=== PATIENT | female | born 1990 | race Caucasian/White ===

== ENCOUNTER 2021-05-10 15:53 | Emergency (ER) | payer MEDICAID ==
[~2021-05-10] VITALS: Ht 170.2 cm; Wt 72.7 kg
[2021-05-10 16:46] LABS: URINE HCG NEGATIVE (NEG)
[2021-05-10 16:50] LABS: HEMOGLOBIN 16.7 g/dl (12.0-16.0); MEAN PLATELET VOLUME 9.7 FL (7.4-10.4); MONOCYTES # (AUTO) 0.6 X10'3 (0-0.9); PLATELET COUNT 205 X10'3 (140-440)
[2021-05-10 16:52] LABS: BASOPHILS % (AUTO) 0.3 % (0-1); EOSINOPHILS % (AUTO) 0.2 % (0-6); HEMATOCRIT 49.5 % (35.0-45.0); LYMPHOCYTES # (AUTO) 1.6 X10'3 (1.1-4.8); LYMPHOCYTES % (AUTO) 23.1 % (21-51); MEAN CORPUSCULAR HEMOGLOBIN 31.1 PG (27.0-31.0); MEAN CORPUSCULAR HGB CONC 33.8 g/dL (33.0-36.5); MEAN CORPUSCULAR VOLUME 92.1 FL (78-98); MONOCYTES % (AUTO) 8.9 % (2-12); NEUTROPHILS # (AUTO) 4.8 X10'3 (1.8-7.7); NEUTROPHILS % (AUTO) 67.5 % (42-75); RED BLOOD COUNT 5.38 X10'6 (4.20-5.60); RED CELL DISTRIBUTION WIDTH 13.4 % (11.5-14.5); WHITE BLOOD COUNT 7.1 X10'3 (4.5-11.0)
[2021-05-10 16:54] LABS: ALANINE AMINOTRANSFERASE 14 U/L (12-78); ALBUMIN 4.8 G/DL (3.4-5.0); ALBUMIN/GLOBULIN RATIO 1.2 (1.1-1.5); ALKALINE PHOSPHATASE 99 IU/L (46-116); ANION GAP 16 (8-16); ASPARTATE AMINO TRANSFERASE 16 U/L (10-37); BILIRUBIN,TOTAL 0.8 MG/DL (0.1-1.0); BLOOD UREA NITROGEN 11 MG/DL (7-18); BUN/CREATININE RATIO 12.9 (6.6-38.0); CALCIUM 9.5 MG/DL (8.5-10.1); CHLORIDE 103 MMOL/L (99-107); CREATININE 0.85 MG/DL (0.40-0.90); GLUCOSE 83 MG/DL (70-104); POTASSIUM 3.3 MMOL/L (3.5-5.1); SODIUM 142 MMOL/L (135-145); TOTAL CARBON DIOXIDE 22.7 MMOL/L (24-32); TOTAL PROTEIN 8.7 G/DL (6.4-8.2); eGFR 79 ML/MIN
[2021-05-10 16:56] LABS: URINE AMPHETAMINE SCREEN NEGATIVE (Neg); URINE BARBITUATE SCREEN NEGATIVE (Neg); URINE BENZODIAZEPINES SCREEN NEGATIVE (Neg); URINE CANNABINOID SCREEN POSITIVE (Neg); URINE COCAINE SCREEN NEGATIVE (Neg); URINE METHADONE SCREEN NEGATIVE (Neg); URINE OPIATE SCREEN NEGATIVE (Neg); URINE PHENCYCLIDINE SCREEN NEGATIVE (Neg)
[2021-05-10 17:01] LABS: CLARITY,URINE BLOODY (Clear); COLOR,URINE RED (Yellow); UA COLLECTION TYPE CLN CATCH MIDSTREAM
[2021-05-10 17:04] LABS: RBC,URINE TNTC /HPF (0-2)
[2021-05-10 17:04] LABS: ETHANOL < 0.010 GM/DL (0.0-0.010)
[2021-05-10 17:06] LABS: BACTERIA,URINE 2+ /HPF (Neg); MUCUS STRANDS MANY /LPF (Neg); SQUAMOUS EPITHELIAL CELL,UR MANY /LPF (FEW); WBC CLUMPS,URINE MODERATE /HPF (NEGATIVE); WBC,URINE 50-100 /HPF (0-4)
[2021-05-10] MEDS: sulfamethoxazole/trimethoprim DS (800/160mg) tablet PO SCH (20:01)
--- NOTE | 2021-05-10 21:53 | NUR ---
Patient brought from to overflow bed 26 at 1900. She was accompanied by 2 techs. Patient's belongings inventoried, and she was dressed in unit scrubs. Patient states that her father took her to [employer], who recommended she come to [facility] for MH evaluation. Patient has 2 young children. [place] It also sounds like her parents also live in this park. Patient's oldest child, "has issues, and is a handful." Patient states her father helps and is able to handle the child. Patient is quite child-like and surely needs assistance with her children. It also seems like the children's father helps, but he is out of town a lot. Patient believes the elder child has issues due to her "smoking lots of pot while I was ." Patient believes she is "jyc-ciol-sidzi." Her friends have led her to believe that she is Schizophrenic. MH issues run in her family. Patient has no formal diagnosis. She is here asking for help, and would like to know what is wrong with her. She has been self-medicating with Marijuana for years, "24 or as often as possible." Patient's children will be cared for "as long as it takes for me to get fixed." The patient has trouble "keeping things straight." She calls them "story-lines," but is believed they are auditory hallucinations, or delusions. She also endorses VH, "I've been seeing people." Patient states that she smokes marijuana, "because it helps, but sometimes makes it worse."
--- NOTE | 2021-05-10 22:25 | NUR ---
Patient lying quietly in bed. She is in supine position with her eyes closed. RR even and unlabored.
[2021-05-10] MEDS ORDERED: LORazepam 1 MG tablet PO ONE (23:30)
--- NOTE | 2021-05-10 23:30 | NUR ---
Patient is restless, "can't stay in bed", and getting agitated. Order received from JOHNNY Anguiano for Ativan 1mg PO. It has been administered.
--- NOTE | 2021-05-11 00:15 | NUR ---
Patient continues to be restless and anxious. "I need to move, walk or something." Patient calls them "story-lines," which are really delusions. She is verballizing these delusions about being killed, killing others, friends, seeing relatives, etc. She is very distracted and disorganized by these "story-lines" that she is having trouble keeping what's real, and what's not separate, to the point where, "I may do anything."
--- NOTE | 2021-05-11 01:15 | NUR ---
Patient is asleep in supine position. Breathing is even and unlabored. There are no s/sx of distress.
--- NOTE | 2021-05-11 02:42 | NUR ---
Patient continues to sleep in supine position. Her breathing is unlabored, and there are no s/sx of distress.
--- NOTE | 2021-05-11 04:22 | NUR ---
Patient is asleep in semi-supine position. Her breathing remains even and unlabored. There are no s/sx of distress.
--- NOTE | 2021-05-11 05:30 | NUR ---
Patient sleeping on her right side. RR even and unlabored. No s/sx of distress.
--- NOTE | 2021-05-11 06:20 | NUR ---
Patient came to nurse's station when RN getting report. Patient asked for new linen. RN advised patient that when report is done RN would get her clean linen. Patient verbalized understanding.
--- NOTE | 2021-05-11 06:30 | NUR ---
RN gave patient a new set of linen and patient got a new set of clothes. She brought her linen over and RN noticed blood on her linen. Patient stated she was on her period. RN went to the main to get patient some pads and underwear. RN gave to patient.
--- NOTE | 2021-05-11 06:30 | NUR ---
Received pt. awake and demanding new sheets because she was on her period. Pt. yelled out agitatedly, "I've been asking for new sheets and a call light all night! I'm a patient, you're job is to serve me!" This caption writer introduced heself and attempted to assure pt. of her safety on the unit. Pt. continued to be damanding and agitated, stated sarcastically, "Yeah right Bitch, we'll see how you do today!" This caption writer attempted to redirect pt. and security was called for a standby. Pt. continued to yell and posture towards this caption writer. Dr. Kennedy over assess, and medications will be ordered. Pt. was provided clean sheets, scrubs, and feminine hygiene products. Pt. went to the BR to get dressed and came out naked, standing with her arms and legs spread. She was redirected back into the BR by security. Pt. took her medications while security stood by. She lay down in bed stating in a hypomanic way way, "Have you ever heard the song about LSD?! That little yellow pill you gave me reminded me of it." Will continue to monitor.
--- NOTE | 2021-05-11 06:35 | NUR ---
Patient came to nurse's station and asked for a tooth brush. RN told her she would get one in a moment. Patient walked over to her room and said "You better fucking give me a toothbrush!". Patient started punching her hand. RN called for Security for stand by. Dr Kennedy spoke with patient and calmed her down. Continue to monitor.
[2021-05-11 06:40] VITALS: BP 135/88
[2021-05-11] MEDS ORDERED: OLANZapine 5mg rapidly disint. tablet PO ONE (06:45)
[2021-05-11] MEDS: sulfamethoxazole/trimethoprim DS (800/160mg) tablet PO SCH (07:05)
[2021-05-11] MEDS ORDERED: olanzapine 10mg tablet PO SCH (08:00)
--- NOTE | 2021-05-11 08:15 | NUR ---
Patient sleeping. RN placed her tray at bedside. Patient opened her eyes but went back to sleep. Continue to monitor.
--- NOTE | 2021-05-11 09:59 | NUR ---
[facility] Patient [facility] on a 5150 for gravely disabled. Continue to monitor.
--- NOTE | 2021-05-11 11:12 | NUR ---
Mother, Alana Elise, . Patient's legal surname is Gosia per mom.
--- NOTE | 2021-05-11 13:05 | NUR ---
Lunch tray set on tray table. Patient is still sleeping. No distress observed. Continue to monitor.
--- NOTE | 2021-05-11 14:35 | NUR ---
Patient sleeping supine. No distress observed. Continue to monitor.
== END 2021-05-11 16:25 ==
LOC: ER 15:54
DX: F29 Unspecified psychosis not due to a substance or known physiological condition (principal); Z20.822 Contact with and (suspected) exposure to COVID-19; N39.0 Urinary tract infection, site not specified; F12.90 Cannabis use, unspecified, uncomplicated; F20.9 Schizophrenia, unspecified; Z88.0 Allergy status to penicillin
CPT/HCPCS: 36415; 80053; 80305; 80320; 81001; 81025; 84443; 85025; 87635; 99285; C9803

== ENCOUNTER 2022-08-05 14:11 | Emergency (ER) | payer MEDICAID, OTHER ==
[~2022-08-05] VITALS: Ht 167.6 cm; Wt 63.6 kg
[2022-08-05] MEDS ORDERED: LORazepam 2 mg/ml vial IM ONE (16:00)
[2022-08-05] MEDS ORDERED: haloperidol lactate 5mg/ml inj IM ONE (16:00)
[2022-08-05 16:24] LABS: BASOPHILS % (AUTO) 0.6 % (0-1); EOSINOPHILS % (AUTO) 0.6 % (0-6); HEMATOCRIT 46.9 % (35.0-45.0); HEMOGLOBIN 16.2 g/dl (12.0-16.0); LYMPHOCYTES # (AUTO) 1.8 X10'3 (1.1-4.8); LYMPHOCYTES % (AUTO) 25.3 % (21-51); MEAN CORPUSCULAR HEMOGLOBIN 31.5 PG (27.0-31.0); MEAN CORPUSCULAR HGB CONC 34.5 g/dL (33.0-36.5); MEAN CORPUSCULAR VOLUME 91.3 FL (78-98); MEAN PLATELET VOLUME 9.6 FL (7.4-10.4); MONOCYTES # (AUTO) 0.6 X10'3 (0-0.9); NEUTROPHILS # (AUTO) 4.6 X10'3 (1.8-7.7); NEUTROPHILS % (AUTO) 64.5 % (42-75); PLATELET COUNT 208 X10'3 (140-440); RED BLOOD COUNT 5.14 X10'6 (4.20-5.60); RED CELL DISTRIBUTION WIDTH 13.1 % (11.5-14.5); WHITE BLOOD COUNT 7.1 X10'3 (4.5-11.0)
[2022-08-05 16:38] LABS: ALANINE AMINOTRANSFERASE 36 U/L (12-78); ALBUMIN 4.4 G/DL (3.4-5.0); ALBUMIN/GLOBULIN RATIO 1.2 (1.1-1.5); ALKALINE PHOSPHATASE 62 IU/L (46-116); ANION GAP 13 (8-16); ASPARTATE AMINO TRANSFERASE 37 U/L (10-37); BILIRUBIN,TOTAL 0.9 MG/DL (0.1-1.0); BLOOD UREA NITROGEN 11 MG/DL (7-18); BUN/CREATININE RATIO 14.5 (10.0-20.0); CALCIUM 9.1 MG/DL (8.5-10.1); CHLORIDE 100 MMOL/L (99-107); CREATININE 0.76 MG/DL (0.40-0.90); ETHANOL < 0.010 GM/DL (0.0-0.010); GLUCOSE 88 MG/DL (70-104); POTASSIUM 3.1 MMOL/L (3.5-5.1); SODIUM 139 MMOL/L (135-145); eGFR 89 ML/MIN
[2022-08-05 18:27] VITALS: BP 142/86
== END 2022-08-05 21:54 ==
LOC: ER 14:12
DX: F23 Brief psychotic disorder (principal); F12.90 Cannabis use, unspecified, uncomplicated; Z88.0 Allergy status to penicillin
CPT/HCPCS: 36415; 70450; 80053; 80320; 85025; 99284

== ENCOUNTER 2023-03-14 18:00 | Inpatient (IN) | payer MEDICAID ==
[~2023-03-14] VITALS: Ht 167.6 cm; Wt 64.1 kg
[2023-03-14] MEDS ORDERED: loperamide 2mg capsule PO PRN (22:20)
[2023-03-14] MEDS ORDERED: acetaminophen 325mg tablet PO PRN ×2 (22:20)
[2023-03-14] MEDS ORDERED: mag hydrox/Alum hydrox/simeth 30ml oral suspension PO PRN (22:20)
[2023-03-14] MEDS ORDERED: traZODone 50mg tablet PO PRN (22:20)
[2023-03-14 23:39] VITALS: BP 131/91; PULSE 90; RESP 18; TEMP 97.2; O2SAT 98
[2023-03-14 23:43] VITALS: RESP 18; O2SAT 98
[2023-03-14] MEDS ORDERED: ALB0.5UD IH (23:50)
[2023-03-14] MEDS ORDERED: BUSP10TA4 PO (23:50)
[2023-03-14] MEDS ORDERED: IBUP-1986 PO (23:50)
[2023-03-15] MEDS ORDERED: albuterol 2.5 MG/3 ML nebule NEB PRN (02:30)
[2023-03-15] MEDS ORDERED: ibuprofen tablet 400 MG TABLET PO PRN (02:35)
--- NOTE | 2023-03-15 04:51 | NUR ---
RN PROGRESS NOTE: LEGAL HOLD: 5150 for GD/DTS PROBLEM: Client transferred from [facility] and arrived on the unit at 21:15. She took a shower and changed into green scrubs. Client was admitted for disorganized thoughts and behavior. She was recently incarcerated. While in assisted she was agitated and banged her head against the wall. Client had a similar episode one year ago and spent five days in [facility]. INTERVENTIONS: 1:1 assessments. Q 15 min checks for safety. RESPONSE: Client reported her mental health symptoms began after the of her second son. (She has two young children.) CPS is involved and client is concerned about being able to see her children. She currently has supervised visitation on . Clients mother when client was 10 yo. She does not know her father. She reported that there is a restraining order between herself and the "Elise's". Client reports daily vaping and cannabis use. She reports hearing voices but is aware they "are not real". She denies SI/HI. Cooperative with admission. Took 50 mg Trazodone Tab PO for sleep.
[2023-03-15 07:00] VITALS: RESP 16; O2SAT 99
[2023-03-15 08:34] VITALS: BP 132/87; PULSE 84; RESP 16; TEMP 98.3; O2SAT 99
[2023-03-15] MEDS: busPIRone 5mg tablet PO SCH ×2 (09:00→20:57)
[2023-03-15] MEDS: NICOTINE POLACRILEX 2 MG LOZENGE BC PRN ×4 (09:00→21:04)
[2023-03-15 09:18] LABS: HEMOGLOBIN A1C 4.6 % (4.5-6.2)
[2023-03-15 10:03] LABS: CHOL/HDL RATIO 2.9 (0.00-4.99); CHOLESTEROL 125 MG/DL (0-200); HDL CHOLESTEROL 43 MG/DL (35-60); LDL CHOLESTEROL 69 MG/DL (50-100); TRIGLYCERIDES 95 MG/DL (20-135)
[2023-03-15] MEDS ORDERED: LORazepam 1 MG tablet PO ONE (10:15)
--- NOTE | 2023-03-15 16:06 | NUR ---
Nursing Progress Note: Problem : Pt. is on a 5150 for DTS and GD. Per 5150: You have been unable to sleep and have not been able to create a plan for food, clothes, and care home. Pt. transferred from [facility] and arrived on the unit at 21:15. She took a shower and changed into green scrubs. Pt. was admitted for disorganized thoughts and behavior. She was recently incarcerated. While in snf she was agitated and banged her head against the wall. Client had a similar episode one year ago and spent five days in [facility]. Interventions : Introduced self and attempted to establish rapport, maintained a safe and supportive environment, ensured contract for safety, monitored pt's behavior and provided intervention as needed, provided active listening and positive encouragement, and maintained Q 15min safety checks. Response : Received pt. sleeping in bed at the beginning of the shift, she awoke and was observed to be up in the hallway listening to headphones and interacting appropriately with others. After breakfast, this selling underwriter introduced herself and attempted to establish rapport, pt. presents as irritable, somewhat restless, and appears paranoid. She requests to inspect the packaging of her medication before taking it. Pt. states in an irritable manner, "I want to go home to my two children!" Pt. remained up interacting with others and playing cards in the Group Room. She was noted to present as labile as evidenced by being observed to be laughing and dancing in the hallway at one moment and agitated the next. At approximately 1000, pt. became increasingly anxious and tearful, when questioned what was wrong she stated, "I miss my brother." This selling underwriter provided active listening and pt. requested a PRN anxiolytic. This was endorsed to Dr. Ferguson and received an order for Ativan 1mg, medication was administered with effectiveness. Pt . remained up throughout the shift and showered with set-up help required from staff. 1:1 was completed and pt. denies any S/I, H/I, A/V/MAIN, and no delusional statements were made. She appears to be minimizing any s/s, but does endorse some depression r/t the loss of her children. When questioned by this selling underwriter regarding her living situation, pt. stated in a defensive manner, "I have a trailer, a car and a job." Plan : Pt. requires interruption of current crisis, medication adjustments, and a safe and supportive environment.
[2023-03-15 20:00] VITALS: BP 127/85; PULSE 96; RESP 16; TEMP 98; O2SAT 96
[2023-03-15] MEDS ORDERED: docusate sod 100mg capsule PO ONE (20:00)
[2023-03-15] MEDS: olanzapine 10mg tablet PO SCH (20:57)
[2023-03-15] MEDS: docusate sod 100mg capsule PO SCH (21:04)
[2023-03-15] MEDS: LORazepam 0.5 MG tablet PO PRN (21:04)
--- NOTE | 2023-03-16 05:19 | NUR ---
Nursing Progress Note: Problem : Pt. is on a 5150 for DTS and GD. Per 5150: You have been unable to sleep and have not been able to create a plan for food, clothes, and penitentiary. Pt. transferred from [facility] and arrived on the unit at 21:15. She took a shower and changed into green scrubs. Pt. was admitted for disorganized thoughts and behavior. She was recently incarcerated. While in nursing home she was agitated and banged her head against the wall. Client had a similar episode one year ago and spent five days in [facility]. Interventions : Established rapport with patient by explaining all care. Maintained a safe and supportive environment, while ensuring contract for safety. Q 15 min. rounding safety checks. Response:193 took over pt. care from previously assigned nurse. Pt was in the day room interacting with other pts-playing cards. Pt. also received a phone call from her older brother whom she noted that they have a good relationship. Pt. also saw Dr. Manrique this shift who adjusted pts. meds. Dr. Mullen also asked this write to contact the hospitalist regarding pt.s tooth abscess and need for antibiotics- and concern for penicillin allergies yet pt. reported to have received amoxicillin at [facility] per Dr. Mullen's report. Dr. Roy made are and lab work ordered. At 1999 Pt. pt. pleasant and cooperative denies any S/I, H/I, A/V/MAIN, and no delusional but pt. stated, I needed to go home to my children because they were killed" Pt. was cooperative taking her meds this shift; prn Ativan given x1 for c/o anxiety. Plan : Pt. requires interruption of current crisis, medication adjustments, and a safe and supportive environment.
[2023-03-16 07:00] VITALS: RESP 14; O2SAT 100
[2023-03-16] MEDS: NICOTINE POLACRILEX 2 MG LOZENGE BC PRN ×7 (07:32→21:41)
[2023-03-16 08:00] VITALS: BP 111/77; PULSE 108; RESP 14; TEMP 97.7; O2SAT 100
[2023-03-16] MEDS: busPIRone 5mg tablet PO SCH (08:54)
[2023-03-16] MEDS: docusate sod 100mg capsule PO SCH ×2 (08:54→20:17)
[2023-03-16] MEDS: LORazepam 0.5 MG tablet PO PRN ×3 (08:58→20:17)
[2023-03-16 09:25] LABS: BASOPHILS % (AUTO) 0.2 % (0-1); EOSINOPHILS # (AUTO) 0.1 X10'3 (0-0.9); EOSINOPHILS % (AUTO) 1.5 % (0-6); HEMATOCRIT 47.8 % (35.0-45.0); HEMOGLOBIN 16.2 g/dl (12.0-16.0); LYMPHOCYTES # (AUTO) 2.2 X10'3 (1.1-4.8); LYMPHOCYTES % (AUTO) 32.9 % (21-51); MEAN CORPUSCULAR HEMOGLOBIN 31.4 PG (27.0-31.0); MEAN CORPUSCULAR HGB CONC 33.9 g/dL (33.0-36.5); MEAN CORPUSCULAR VOLUME 92.4 FL (78-98); MEAN PLATELET VOLUME 10.3 FL (7.4-10.4); MONOCYTES # (AUTO) 0.6 X10'3 (0-0.9); MONOCYTES % (AUTO) 8.1 % (2-12); NEUTROPHILS # (AUTO) 3.9 X10'3 (1.8-7.7); NEUTROPHILS % (AUTO) 57.3 % (42-75); PLATELET COUNT 195 X10'3 (140-440); RED BLOOD COUNT 5.18 X10'6 (4.20-5.60); RED CELL DISTRIBUTION WIDTH 13.1 % (11.5-14.5); WHITE BLOOD COUNT 6.8 X10'3 (4.5-11.0)
[2023-03-16 15:42] LABS: HBSAG SCREEN Negative (Negative); HEP B CORE AB, IGM Negative (Negative); HEP B CORE AB, TOT Negative (Negative)
--- NOTE | 2023-03-16 16:44 | NUR ---
Nursing Progress Note: Problem : Pt. is on a 5150 for DTS and GD. Per 5150: You have been unable to sleep and have not been able to create a plan for food, clothes, and usp. Pt. transferred from [facility] and arrived on the unit at 21:15. She took a shower and changed into green scrubs. Pt. was admitted for disorganized thoughts and behavior. She was recently incarcerated. While in custodial she was agitated and banged her head against the wall. Client had a similar episode one year ago and spent five days in [facility]. Interventions : Maintained a safe and supportive environment, attempted to orient to reality, monitored pt's behavior and provided intervention as needed, provided active listening and positive encouragement, and maintained Q 15min safety checks. Response : Received pt. sleeping in bed at the beginning of the shift, she awoke and was observed to be up in the Group Room interacting appropriately with others. Pt. continues to present as irritable at times, anxious, impulsive, and labile. She is observed to be dancing, singing, and attention seeking at intervals (mainly seeking attention from male peers) and at other times is tearful and agitated. Pt. also continues to present as paranoid and again requests to inspect the packaging of her medications before taking them and stares intently at this magnetic tape typewriter operator in what appears to be a suspicious manner. Pt. reported anxiety and requested PRN Ativan, medication was administered with some effectiveness. She refused breakfast and lunch, but does attend snack times. Pt. remained up throughout the morning exhibiting bizarre behaviors at intervals and appears to be be responding to internal stimuli. At one point pt. stood outside another peer's room holding a cell phone up in the air and pushing the on & off buttons repeatedly requiring redirection. She frequently approaches the observation room and steres intently through the window and appears to experiencing V/MAIN. Pt. showered and was overheard to be agitatedly responding to internal stimuli during this time, yelling out, "Andrea, you're a f...ing pussy, let me be God for once!" Pt. refused 1:1 mental health evaluation this shift. At approximately 1200, pt. was observed to be laying in bed with the covers pulled over her head and crying loudly. This magnetic tape typewriter operator attempted to provide positive encouragement and assess pt. for any needs, however she became agitated and yelled, "Get out! I just want to leave!" Pt. later was observed to be hitting herself in the head intermittently, she was able to be verbally redirected and refused any need for an anxiolytic. Pt. did not receive any visible injuries, and this behavior was endorsed to Dr. Ferguson, no new orders were obtained. Pt. napped and awoke later requesting PRN Ativan, medication was administered with effectiveness. Pt. did not complain of any tooth pain this shift and her ordered white blood cell count and procalcitonin came back WNL. Will continue to monitor closely. Plan : Pt. requires interruption of current crisis, medication adjustments, and a safe and supportive environment.
[2023-03-16 19:00] VITALS: RESP 14; O2SAT 99
[2023-03-16 20:00] VITALS: BP 122/84; PULSE 84; RESP 14; TEMP 98.6; O2SAT 99
[2023-03-16] MEDS: olanzapine 10mg tablet PO SCH (20:17)
[2023-03-16 20:30] VITALS: PULSE 103; RESP 16; O2SAT 98
[2023-03-16] MEDS: lithium carbonate 150mg capsule PO SCH (21:40)
--- NOTE | 2023-03-17 01:04 | NUR ---
Nursing Progress Note: Problem : Pt. is on a 5150 for DTS and GD. Per 5150: You have been unable to sleep and have not been able to create a plan for food, clothes, and skilled nursing. Pt. transferred from [facility] and arrived on the unit at 21:15. She took a shower and changed into green scrubs. Pt. was admitted for disorganized thoughts and behavior. She was recently incarcerated. While in shelter she was agitated and banged her head against the wall. Client had a similar episode one year ago and spent five days in [facility]. Interventions : Maintained a safe and supportive environment, attempted to orient to reality, monitored pt's behavior and provided intervention as needed, provided active listening and positive encouragement, and maintained Q 15min safety checks. Response : Pt. received eating dinner in the community room at change of shift. Pt. denies SI/HI/AH/VH. She reports having a good day because she was able to talk to the doctor. Pt. was reported to have pulled a male peers hair and making delusional statements "were kissing cousins" and going into his room. Discussed pts. behavior is not appropriate and to keep her hands to herself. Pt. has been observed staring at peers and staff members this shift. Pt. paced the unit for a while and returned to the community room to color. Pt. requested prune juice this shift. She is medication compliant. PRN ativan and nicotine lozenge provided this shift. Observed and appears sleeping without difficulty. Plan : Pt. requires interruption of current crisis, medication adjustments, and a safe and supportive environment.
[2023-03-17 07:00] VITALS: RESP 16; O2SAT 96
[2023-03-17] MEDS: docusate sod 100mg capsule PO SCH ×2 (07:53→20:23)
[2023-03-17] MEDS: lithium carbonate 150mg capsule PO SCH ×2 (07:54→20:23)
[2023-03-17 08:00] VITALS: BP 119/81; PULSE 77; RESP 16; TEMP 97.3; O2SAT 100
[2023-03-17] MEDS: LORazepam 0.5 MG tablet PO PRN ×2 (08:00→19:12)
[2023-03-17] MEDS: NICOTINE POLACRILEX 2 MG LOZENGE BC PRN ×2 (08:00→19:12)
[2023-03-17] MEDS: magnesium hydroxide 30ml (MOM) UD suspension PO PRN ×2 (08:00→19:13)
[2023-03-17] MEDS ORDERED: LORazepam 1 MG tablet PO PRN (11:50)
[2023-03-17] MEDS ORDERED: olanzapine 10mg tablet PO SCH (11:50)
[2023-03-17] MEDS ORDERED: olanzapine 10mg tablet PO PRN (11:50)
[2023-03-17] MEDS: olanzapine 10mg tablet PO SCH ×2 (12:25→20:23)
--- NOTE | 2023-03-17 16:01 | NUR ---
Nursing Progress Note: Norma Problem : Pt. is on a 5150 for DTS and GD. Per 5150: You have been unable to sleep and have not been able to create a plan for food, clothes, and jail. Pt. was admitted for disorganized thoughts and behavior. She was recently incarcerated. While in alf she was agitated and banged her head against the wall. Client had a similar episode one year ago and spent five days in [facility]. Interventions : Maintained a safe and supportive environment, attempted to orient to reality, monitored pt's behavior and provided intervention as needed, provided active listening and positive encouragement, and maintained Q 15min safety checks. Response : Pt. received asleep and awoke to take her medications without hesitation. She denies SI, HI, AH, VH with a DC plan to get back to work at [employer] and get my kids back She was observed whispering to herself and making gestures with her hand at her side repeatedly. Pt. presents with flat affect, good eye contact, cooperative, but guarded with communication with this teletypewriter operator. Pt. c/o anxiety at 0800 and requested Ativan; medication administered with good results. Pt. received her brother as a visitor and met the provider shortly after. She secluded in her room for the remainder of the morning. Pt. showered, well groomed, and is wearing unit scrubs. She reports hard stools yesterday with constipation today; MOM administered with good results. Pt. placed on 5250 today. Plan : Pt. requires interruption of current crisis, medication adjustments, and a safe and supportive environment.
[2023-03-17 19:38] VITALS: BP 104/69; PULSE 80; RESP 17; TEMP 98.2; O2SAT 99
[2023-03-17 22:00] VITALS: PULSE 88; RESP 15; O2SAT 98
--- NOTE | 2023-03-18 02:25 | NUR ---
Nursing Progress Note: Problem : Pt. is on a 5150 for DTS and GD. Per 5150: You have been unable to sleep and have not been able to create a plan for food, clothes, and mcc. Pt. was admitted for disorganized thoughts and behavior. She was recently incarcerated. While in [facility] she was agitated and banged her head against the wall. Client had a similar episode one year ago and spent five days in [facility]. Interventions : Maintained a safe and supportive environment, attempted to orient to reality, monitored pt's behavior and provided intervention as needed, provided active listening and positive encouragement, and maintained Q 15min safety checks. Response : Upon arrival to shift noted patient walking halls with headphones on. Noted patient to be guarded and irritable during initial conversation. Placed on 5250 today. Reports having a tender, hard abdomen. Unable to report when last BM was. Around med pass and assessment time patient noted to be very pleasant, smiling and grateful. Gave Apple-pie warmed mixed drink consisting of prune juice, applesauce and butter. Compliant with HS meds. Requested Ativan, Nicotine lozenges and M.O.M. Given with good results. Participated in bedtime snack. Around 2200 patient reported having 3 BMs with abdominal relief. Currently sleeping. Will continue to monitor. Plan : Pt. requires interruption of current crisis, medication adjustments, and a safe and supportive environment.
[2023-03-18 07:00] VITALS: RESP 16; O2SAT 100
[2023-03-18] MEDS: docusate sod 100mg capsule PO SCH ×2 (07:36→19:57)
[2023-03-18] MEDS: lithium carbonate 150mg capsule PO SCH ×2 (07:36→19:57)
[2023-03-18] MEDS: NICOTINE POLACRILEX 2 MG LOZENGE BC PRN ×2 (07:36→20:35)
[2023-03-18] MEDS: olanzapine 10mg tablet PO SCH ×2 (07:36→19:57)
[2023-03-18 08:00] VITALS: BP 97/64; PULSE 106; RESP 16; TEMP 98.2; O2SAT 100
[2023-03-18] MEDS: LORazepam 0.5 MG tablet PO PRN ×2 (08:04→19:57)
--- NOTE | 2023-03-18 16:55 | NUR ---
Nursing Progress Note: Problem : Pt. is on a 5150 for DTS and GD. Per 5150: You have been unable to sleep and have not been able to create a plan for food, clothes, and senior living. Pt. was admitted for disorganized thoughts and behavior. She was recently incarcerated. While in intermediate she was agitated and banged her head against the wall. Client had a similar episode one year ago and spent five days in [facility]. Interventions : Maintained a safe and supportive environment, attempted to orient to reality, monitored pt's behavior and provided intervention as needed, provided active listening and positive encouragement, and maintained Q 15min safety checks. Response: Received pt asleep. Pt woke for medications and took them cooperatively. Pt requested PRN Ativan and Nicotine lozenge. Pt ate breakfast in the community room and returned to her room to nap after. Performed 1:1 bedside. Pt denies SI/HI and AVH. Pt states that shes worried how this visit will affect her visitation with her children as shes already only allowed to see them once per week for 3 hours. Provided therapeutic listening. Pt isolative, spending the day in her room. Pt appearance is well groomed. No s/s of distress. Did not observe pt internally responding. Plan : Pt. requires interruption of current crisis, medication adjustments, and a safe and supportive environment.
[2023-03-18 19:28] VITALS: BP 122/73; PULSE 84; RESP 16; TEMP 98.7; O2SAT 99
[2023-03-18 20:34] VITALS: PULSE 101; RESP 16; O2SAT 99
--- NOTE | 2023-03-19 02:29 | NUR ---
Nursing Progress Note: Problem : Pt. is on a 5150 for DTS and GD. Per 5150: You have been unable to sleep and have not been able to create a plan for food, clothes, and chcf. Pt. was admitted for disorganized thoughts and behavior. She was recently incarcerated. While in [facility] she was agitated and banged her head against the wall. Client had a similar episode one year ago and spent five days in [facility]. Interventions : Maintained a safe and supportive environment, attempted to orient to reality, monitored pt's behavior and provided intervention as needed, provided active listening and positive encouragement, and maintained Q 15min safety checks. Response: Upon arrival to shift noted patient walking in hallway. Appears to be well-groomed with clean scrubs on. Greeted nurse and began to chat. Noted to be open and honest about her mental state. Denies MH s/sx except reports,Im sad that my ex is keeping my kids from me. Someone said that I wasnt taking my meds but how could they know that? I live alone. Loida been taking my meds. She became tearful. This RN empathized with patient and acknowledged the pain she must feel missing her kids and how the staff here are happy to help her get better. Compliant with HS meds. PRN Ativan and Nicotine lozenges. Noted that she and a male cohort spent majority of awake hours this evening talking together. Noted conversation to include questions around where she lives so he could visit her. This RN asked patient if she wants him to know where she lives. Patient responds,yeah thats fine I just dont know my address. Slept well this shift. Will continue to monitor. Plan : Pt. requires interruption of current crisis, medication adjustments, and a safe and supportive environment. Current plan per MD note is for her to go home with support.
[2023-03-19 07:30] VITALS: RESP 16; O2SAT 100
[2023-03-19] MEDS: lithium carbonate 150mg capsule PO SCH (07:53)
[2023-03-19] MEDS: olanzapine 10mg tablet PO SCH (07:53)
[2023-03-19] MEDS: docusate sod 100mg capsule PO SCH (07:53)
[2023-03-19 08:02] VITALS: PULSE 72; RESP 18; O2SAT 99
[2023-03-19] MEDS: NICOTINE POLACRILEX 2 MG LOZENGE BC PRN ×2 (08:11→13:07)
[2023-03-19 08:32] VITALS: BP 118/84; PULSE 103; RESP 16; TEMP 98.3; O2SAT 100
[2023-03-19] MEDS: LORazepam 0.5 MG tablet PO PRN (08:40)
[2023-03-19] MEDS ORDERED: DOCU100C40 PO (13:53)
[2023-03-19] MEDS ORDERED: NICO-907 BC (13:53)
[2023-03-19] MEDS ORDERED: OLAN10TA73 PO (13:53)
[2023-03-19] MEDS ORDERED: LIT300C PO ×2 (13:53→13:55)
--- NOTE | 2023-03-19 15:00 | NUR ---
Pt. refused MRI. Pt. states, "I want to go home now, I'll get the MRI done another time". RN encouraged pt. to address this with her outpatient provider.
[2023-03-19 15:24] LABS: ALANINE AMINOTRANSFERASE 16 U/L (12-78); ALBUMIN/GLOBULIN RATIO 1.2 (1.1-1.5); ALKALINE PHOSPHATASE 51 IU/L (46-116); ANION GAP 6 (8-16); ASPARTATE AMINO TRANSFERASE 14 U/L (10-37); BILIRUBIN,TOTAL 0.3 MG/DL (0.1-1.0); BLOOD UREA NITROGEN 15 MG/DL (7-18); CALCIUM 9.6 MG/DL (8.5-10.1); CHLORIDE 101 MMOL/L (99-107); CREATININE 0.79 MG/DL (0.40-0.90); GLUCOSE 73 MG/DL (70-104); SODIUM 137 MMOL/L (135-145); TOTAL CARBON DIOXIDE 29.6 MMOL/L (24-32); TOTAL PROTEIN 7.3 G/DL (6.4-8.2); eCRCL 97 ML/MIN; eGFR 85 ML/MIN
--- NOTE | 2023-03-19 16:15 | NUR ---
DISCHARGE NOTE: Pt. discharged to home, picked up by her brother. Pt. discharged with all belongings and valuables. RN went over all discharge paperwork with pt. and pt. verbalized understanding of paperwork, including, firearms restriction, f/u plan and discharge medications, emergency phone numbers including 911. Pt. is A&Ox4 and denies SI/HI, A/V hallucinations. Pt. is in no apparent distress.
== END 2023-03-19 16:22 | disposition home or self-care (01) | DRG 753 ==
LOC: ADULT MH 18:00
PROVIDERS: ADMIT Psychiatry & Neurology Psychiatry; ATTEND Psychiatry & Neurology Psychiatry
DX: F31.9 Bipolar disorder, unspecified (principal); F12.90 Cannabis use, unspecified, uncomplicated; F17.200 Nicotine dependence, unspecified, uncomplicated; K59.00 Constipation, unspecified; F41.9 Anxiety disorder, unspecified; J45.909 Unspecified asthma, uncomplicated; Z88.0 Allergy status to penicillin; Z79.899 Other long term (current) drug therapy
CPT/HCPCS: 36415; 80053; 80061; 83036; 84145; 85025; 86704; 86705; 87081; 87340; 94760